=== PATIENT | male | born 1935 | race Caucasian/White ===

== ENCOUNTER 2017-02-12 13:06 | Day surgery (SDC) | payer MEDICARE ==
[2017-02-12] VITALS (7 sets, daily range): BP systolic 118–162; BP diastolic 64–81; PULSE 60–66; RESP 14–16; O2SAT 93–100
[~2017-02-12] VITALS: Ht 172.7 cm; Wt 88.5 kg
[~2017-02-12 13:06] MED LIST: 0.9% Sodium Chloride 1,000 ML IV SCH; ALBU8.5H2 INHALATION; BECL8.7A6 INHALATION; FLUT16SP NS; GABA-500 PO; GLUC500T PO; KRIL1CAP6 PO; Lisinopril PO; MULT-1073 PO; PANT40TA3 PO; Sodium Chloride LOK Flush 10 mL Syringe IV PRN; amlodipine PO; fentaNYL-PF 50 mCg/mL 2 mL Inj IVPUSH PRN; vit D PO; vit c PO
[2017-02-12] MEDS ORDERED: fentaNYL-PF 50 mCg/mL 2 mL Inj IVPUSH ONE (13:57)
[2017-02-12] MEDS ORDERED: Midazolam 5 mg/mL 10 mL Inj IV ONE (13:57)
--- NOTE | 2017-02-12 15:02 | DRSVH ---
PROCEDURE: CT CHEST WITHOUT CONTRAST ([id number]) INDICATIONS: rule out free air TECHNIQUE: Noncontrast 5 mm thick sections acquired from the pulmonary apices to the posterior costophrenic angl es. 7 mm thick coronal and sagittal MIP reformats were then acquired. For radiation dose reduction, the following was used: automated exposure control, adjustment of mA and/or kV according to patient size. COMPARISON: None. FINDINGS: Image quality: Excellent. Lungs and pleura: No acute air space opacities. A small amount of basilar atelectasis is present an d no free pleural fluid or air is found. Central and peripheral airways are patent and normal in mark iber. Mediastinum: Heart size is normal. No pericardial effusion. No mediastinal adenopathy by size crit eria. There is a small amount of pneumomediastinum immediately adjacent to the distal esophagus/hiat al hernia, but no free pneumomediastinum is seen tracking cephalad from that area nor is there free f luid or evidence of mediastinal hematoma. Thoracic aorta and central pulmonary arteries are normal i n size. Esophagus is normal in caliber. No hiatal hernia. Bones and chest wall: No suspicious bony lesions. No vertebral body compression fractures. No axil meghna or supraclavicular adenopathy by size criteria. Thyroid gland appears normal where well visuali zed. Abdomen: Visualized upper abdominal solid organs and bowel loops appear normal in the absence of con trast. IMPRESSION: Distal esophageal perforation, with a small amount of pneumomediastinum immediately adjac ent. No pneumothorax or pleural effusion, or evidence of mediastinal hematoma or free fluid. Reuben immediately called to the ordering health care provider. Dictated by: Marcos Garner M.D. on 02/12/2017 at 14:58 Approved by: Marcos Garner M.D. on 02/12/2017 at 15:01
[2017-02-12] MEDS: Piper-Tazo 3.375 Gm/50 mL D5W Minibag Plus - Q8H over 4 hrs IV ONE ×4 (16:18→17:27)
--- NOTE | 2017-02-13 07:47 | ENDO ---
[address] [address] ENDOSCOPY PROCEDURE PATIENT: BRADEN CORONA : 1935 MR#: [id number] ADMIT: 02/12/2017 JOB ID: [id number] DATE: 02/12/2017 PROCEDURE: Esophagogastroduodenoscopy with biopsy with esophageal dilatation. PREOPERATIVE DIAGNOSIS(ES): Dysphagia. POSTOPERATIVE DIAGNOSIS(ES): Widely open, patent Schatzki ring status post dilatation at 18 mm with moderate amount of bleeding that was seen post dilatation. ANESTHESIA: 1. Fentanyl 125 mcg. 2. Versed 6 mg IV administered. COMPLICATIONS: Moderate amount of bleeding that was seen post dilatation. Afterwards the procedure was then stopped. BLOOD LOSS: Moderate. DESCRIPTION OF PROCEDURE: After risks and benefits were explained to the patient, informed consent was obtained. After anesthesia administered, upper endoscope was then inserted into the mouth, intubated into the esophagus, stomach, second portion of duodenum. Mucosa carefully examined. After procedure was done, the scope withdrawn procedure and procedure terminated. FINDINGS: Upon inspection of the esophagus, there was a widely open, patent Schatzki ring at distal esophagus. Z-line located 40 cm from incisors. Upon entering the stomach, the stomach appeared normal without masses, ulcers or lesions. Retroflexion was normal. Duodenal bulb, first and second portion are normal. Biopsies taken of the antrum and body of the stomach. Biopsies were also taken mid and distal esophagus. Afterwards a TTS CRE balloon dilatation was performed at 18 mm, and during the dilatation, there was a moderate amount of bleeding that was seen at the Schatzki ring. Balloon was inflated for no more than 5 seconds. Balloon was then removed and moderate amount of bleeding was seen. The scope was then advanced to the stomach to act as a tamponade to the area that was bleeding. After a minute or so, the scope was then retracted back to the esophagus in which the blood was suctioned. There was no evidence of perforation that was seen intraluminally during the procedure. This procedure was then stopped. Colonoscopy is being held off at this point in time. IMPRESSIONS: Widely open, patent Schatzki ring status post TTS CRE balloon dilatation to 18 mm that gave a mild amount of blood. After the scopes acted as a tamponade after a few minutes, blood was then suctioned and there was no evidence of perforation during the procedure. Colonoscopy was also held off due to the procedure. RECOMMENDATIONS: 1. CT of the neck and chest to rule out free air. If no evidence of free air, the patient should be on Protonix 40 mg by mouth twice a day, Carafate and a clear liquid diet. We will reschedule colonoscopy in the future given his family history of colon cancer and history of polyps. 2. Await biopsy results. MAHESH
--- NOTE | 2017-02-16 13:34 | PATH ---
SURGICAL PATHOLOGY Attending Physician:Neil Wakefield MD CASE STATUS: Signed Out PATIENT NAME: BRADEN CORONA PID: [id number] : 1935 DATE COLLECTED:02/12/2017 00:00 SPECIMEN: 1: Stomach, Antrum, Biopsy 2: Gastric, Biopsy 3: Esophagus, Biopsy 4: Esophagus, Biopsy CLINICAL HISTORY: 1). ANTRUM BIOPSY 2). GASTRIC BODY BIOPSY 3). MID ESOPHAGUS BIOPSY 4). DISTAL ESOPHAGUS BIOPSY FINAL DIAGNOSIS: 1. Antrum Biopsy: Portion of antral mucosa with mild chronic gastritis. No definite H. pylori organisms identified by H&E stain. Immunohistochemistry studies pending; results will be reported as an addendum. Negative for intestinal metaplasia, dysplasia or malignancy. 2. Gastric Body Biopsy: Portion of gastric body-type mucosa with mild chronic gastritis. No definite H. pylori organisms identified by H&E stain. Immunohistochemistry studies pending; results will be reported as an addendum. Negative for intestinal metaplasia, dysplasia or malignancy. 3. Mid Esophagus Biopsy: Portions of squamous epithelium with no diagnostic abnormality. Intraepithelial eosinophils are not increased. Negative for dysplasia and malignancy. 4. Distal Esophagus Biopsy: Portions of squamous mucosa with no diagnostic abnormality. Negative for squamous dysplasia and malignancy. No columnar epithelium or mucosa is identified for evaluation. ICD10: K29.7 GROSS DESCRIPTION: The specimen is received in four formalin filled containers labeled with the patient's name. 1). The specimen is sublabeled "antrum" and consists of a 0.3 x 0.3 x 0.2 CM portion of tissue which is entirely submitted in cassette 1A. 2). The specimen is sublabeled "gastric body" and consists of 3 portions of tissue which aggregate to 0.3 x 0.3 x 0.2 CM. The specimen is entirely submitted in cassette 2A. 3). The specimen is sublabeled "midesophagus" and consists of a 0.2 x 0.1 x 0.1 CM portion of tissue which is entirely submitted in cassette 3A. 4). The specimen is sublabeled "distal esophagus" and consists of a 0.3 x 0.2 x 0.2 CM portion of tissue which is entirely submitted in cassette 4A. 02/13/2017 [facility] ICD-9 CODES: CPT CODES: 1: 14139, 75549 2: 90700, 27611 3: 42065 4: 68669 PROCEDURE/ADDENDA: Addendum SPI Addendum Diagnosis 1. Stomach antrum bx: Negative for H. pylori organisms by immunohistochemistry studies. 2. Gastric biopsy: Negative for H. pylori organisms by immunohistochemistry studies. This test was developed and its performance characteristics determined by [facility]. It has not been cleared or approved by the U.S. Food and Drug Administration. The FDA has determined that such clearance or approval is not necessary. This test is used for clinical purposes. It should not be regarded as investigational or for research. Addendum Comment {Not Entered} Electronically Signed Out Katy Peoples MD Electronically Signed Out Katy Peoples MD [facility] [address], [place] [address] Technical component performed at [facility], [address], [place], [address]
== END 2017-02-12 23:59 | disposition short-term general hospital (02) ==
LOC: END 13:06
PROVIDERS: ATTEND Internal Medicine Gastroenterology
DX: K22.2 Esophageal obstruction (principal); K91.71 Accidental puncture and laceration of a digestive system organ or structure during a digestive system procedure; R13.10 Dysphagia, unspecified; K29.50 Unspecified chronic gastritis without bleeding; Z86.010 Personal history of colon polyps; Z80.0 Family history of malignant neoplasm of digestive organs; K21.9 Gastro-esophageal reflux disease without esophagitis; E78.2 Mixed hyperlipidemia; I10 Essential (primary) hypertension; Z85.46 Personal history of malignant neoplasm of prostate; G47.30 Sleep apnea, unspecified; Z79.82 Long term (current) use of aspirin; Y69 Unspecified misadventure during surgical and medical care; Y92.234 Operating room of hospital as the place of occurrence of the external cause
CPT/HCPCS: 43239; 43249; 71250; J2250; J2543; J3010; J7030